=== PATIENT | female | born 1995 | race Caucasian/White ===

== ENCOUNTER 2023-04-27 00:53 | Day surgery (SDC) | payer OTHER, SELFPAY ==
[2023-04-21 11:08] VITALS: BMI 22.6
--- NOTE | 2023-04-21 11:11 | PC.NURSE ---
Report to the Outpatient Waiting Room, entrance under the green pavilion located off [facility], at time 1130 on date 04/27/23. Planned Procedure Time: 1330. Time changes happen often and if your time is changed the preop area will call you the afternoon before. - You and your visitor will be asked to self-screen and do not enter if you have any COVID symptoms. - A mask is optional within the hospital at this time. Patients may have clear liquids (water, carbonated beverages, clear teas, apple juice) until 3 hours prior to surgery with a maximum of 20 ounces. - No food from midnight until time of surgery Take the following medications with a SIP of water the morning of surgery: NONE DO NOT STOP ANY OF YOUR OTHER PRESCRIPTION MEDICATIONS PRIOR TO SURGERY ?EXCEPT THE FOLLOWING Medications to discontinue per physician: N/A Date to take last dose: N/A Please no make-up, nail armenian, hairspray, perfume, deodorant, or body powder the day of surgery. No jewelry (including any body piercings) or valuables the day of surgery, leave them at home. Please take a shower or bath the night before, or the morning of, surgery with an antibacterial soap. Wear comfortable, loose fitting clothing. - Jewelry must be removed prior to entering the operating room. Rings and piercings that are not removed may be cut off. - The hospital will not accept responsibility for valuables. - Please leave all valuables, including medications, at home the day of surgery. If you are going home after surgery, a licensed pick up and delivery driver must drive you home. - NO public transportation without another adult if you receive anesthesia. - We recommend that an adult stay with you for 24 hours following discharge. - We also recommend that you do not drive, make important decision, drink alcoholic beverages, or take any drugs that were not prescribed by your health care provider for at least 24 hours after your discharge time. Follow any additional instructions given to you from your surgeon. If you or anyone in your household have experienced Covid symptoms in the past week, please notify your surgeon or the nurse liaison at the phone number below for possible testing. Telephone instructions given to PT - TUAN ROTHMAN and asked if any additional questions and then verbalized understanding. Patient advised to call surgeon office or pre surgery nurse liaison [phone] if any additional questions.
--- NOTE | 2023-04-27 08:25 | WPDANESEPPF ---
Anes - Initial Pre Proc Eval Procedure: Operation Date: 04/27/23 15:00 Proposed Procedures p Rectal Exam Under Anesthesia, Possible Anal Fistulotomy - Norris Wong DO Date/Time: 04/27/23 08:25 Surgeon: Norris Wong DO Pre Op Diagnosis: Anal Fistula ,Tobacco Use Patient Data Age: 28 Gender: F Height: 1.6 m Weight: 58.1 kg Allergies Allergy/AdvReac Type Severity Reaction Status Date / Time No Known Allergies Allergy Verified 04/27/23 13:28 Home Medications Medication Instructions Recorded Confirmed Type diphenhydramine HCl 25 mg capsule 25 mg PO HS PRN Sleep 04/21/23 04/27/23 History (Benadryl) oxycodone-acetaminophen 5 mg-325 0.5 - 1 tablet PO Q4H PRN pain #10 04/27/23 Rx mg tablet (Endocet) tabs Patient hx anesthesia problems: none Family hx anesthesia problems: none Results Review: All pre-operative results and documents have been reviewed as part of the pre-operative evaluation. [facility] Past Medical History Medical History (Updated 04/16/23 @ 11:10 by Sue Fuentes CMA) Anxiety Depression Surgical History Surgical History (Updated 04/16/23 @ 10:49 by Sue Fuentes CMA) History of appendectomy 2000 [facility]. 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 Informed Consent: The patient's anesthetic plan and its attendant risks and benefits were discussed with the patient/family/POA. Questions were solicited and answers provided to the satisfaction of the patient/family/POA.
[2023-04-27 13:10] VITALS: BP 112/60; PULSE 88; RESP 16; TEMP 36.4; O2SAT 100
[2023-04-27] MEDS: ACETAMINOPHEN 500 MG TABLET 1000 MG PO (13:29)
[2023-04-27] MEDS: LACTATED RINGERS 1,000 ML 30 ML IV CONT (13:35)
[2023-04-27] MEDS: KETOROLAC 15 MG/ML VIAL (*BKC) IV PUSH (13:38)
--- NOTE | 2023-04-27 14:12 | P.PNAN_ITS ---
Anes - Initial Pre Proc Eval Procedure: Operation Date: 04/27/23 15:00 Proposed Procedures p Rectal Exam Under Anesthesia, Possible Anal Fistulotomy - Norris Wong DO Date/Time: 04/27/23 14:12 Surgeon: Norris Wong DO Pre Op Diagnosis: Anal Fistula ,Tobacco Use Patient Data Age: 28 Gender: F Height: 1.6 m Weight: 59.3 kg Last Vital Signs Temp 97.6 F 04/27/23 13:10 Pulse 88 04/27/23 13:10 Resp 16 04/27/23 13:10 BP 112/60 04/27/23 13:10 Pulse Ox 100 04/27/23 13:10 O2 Del Method Room Air 04/27/23 13:10 Allergies Allergy/AdvReac Type Severity Reaction Status Date / Time No Known Allergies Allergy Verified 04/27/23 13:28 Home Medications Medication Instructions Recorded Confirmed Type diphenhydramine HCl 25 mg capsule 25 mg PO HS PRN Sleep 04/21/23 04/27/23 History (Benadryl) Patient hx anesthesia problems: none Family hx anesthesia problems: none Results Review: All pre-operative results and documents have been reviewed as part of the pre- operative evaluation. [facility] Past Medical History Medical History (Updated 04/16/23 @ 11:10 by Sue Fuentes CMA) Anxiety Depression Surgical History Surgical History (Updated 04/16/23 @ 10:49 by Sue Fuentes CMA) History of appendectomy 2000 [facility] [place]. 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 Informed Consent: The patient's anesthetic plan and its attendant risks and benefits were discussed with the patient/family/POA. Questions were solicited and answers provided to the satisfaction of the patient/family/POA.
--- NOTE | 2023-04-27 14:24 | WPDHPUPDATE1 ---
History and Physical Update Update Date/Time: 04/27/23 14:24 History and Physical has been reviewed, including an updated exam of the patient. There are NO changes in the patient's condition. Risks, benefits, and alternatives have been discussed and questions answered. Patient agrees to proceed with procedure.
[2023-04-27] MEDS: ceFAZolin 2 GM/D5W 50 ML 2 GM/50 ML BAG IVPB (14:34)
[2023-04-27] MEDS: BUPivacaine HCL 0.5% PF 30 ML VIAL INFILTRATE (14:58)
--- NOTE | 2023-04-27 15:13 | W.PM.PROC2 ---
Procedure Note - Detailed Date of Procedure 04/27/23 Pre-op Diagnosis Anal Fistula ,Tobacco Use Post-op Diagnosis Same (Right anterior intersphincteric anal fistula) Procedure Performed Rectal exam under anesthesia with intersphincteric anal fistulotomy Surgeon Norris Wong, DO Anesthesia General and Local (0.5% bupivacaine with epinephrine) Indications This is a 28-year-old woman who presented with recurrent swelling and drainage in the perirectal area. She which only had a perirectal abscess that was drained in August of 2022. She then recovered from this but had another recurrent episode in the same region. She continues to have intermittent drainage from this area and pain when there is increased swelling and drainage. She was found to have a small sinus tract the perianal skin in the right anterior location. This appeared to likely be a fistula communicating to the anal canal. Discussions were made with the patient about treatment options and decision was made to proceed with rectal exam under anesthesia with possible anal fistulotomy. Findings Rectal exam under anesthesia was performed. The patient was found to have an anal fistula in the right anterior location about 4 cm from the anal verge. The fistula tract was carefully probed and the internal opening was identified near the anterior midline region. This appeared to be a relatively shallow intersphincteric fistula and appeared to go through only a few sphincter muscle fibers. The remainder of the internal and external sphincter muscles appeared intact. A fistulotomy was performed directly over the tract. The granulation tissue was cleaned up using electrocautery. No other deep abnormalities were noted. No specimens were obtained for pathology. Description of Procedure Procedure as well as risks, benefits, and alternatives were discussed with the patient. Written consent was obtained and placed in chart prior to procedure. Patient was brought back to surgical suite. She was placed supine on her hospital stretcher. Time-out was done to confirm patient and procedure. She was intubated by Anesthesia Department. She was then repositioned into prone dewayne-knife position on the operating table. Her perirectal region was prepped and draped in sterile fashion using Betadine prep. Digital rectal exam was initially performed. A Hill-Van anoscope was then inserted and the anal rectal canal was carefully inspected. I then identified the fistula tract on the perianal skin about 4 cm from the anal verge. This was probed using a small lacrimal probe and the tract was identified advancing towards the anterior midline. The probe was carefully gently advanced throughout the length of the tract until it was visualized at the anal canal. The internal opening was identified in the anterior midline of the anal canal and the probe was advanced all the way through this opening. 0.5% bupivacaine with epinephrine was then infiltrated locally over the tract. A 15 blade scalpel was then used to make an incision directly over the fistula tract from the internal opening to the external opening. Electrocautery was then used for hemostasis and for dissection through the subcutaneous tissue until the fistula tract was completely opened and the fistulotomy was performed. There was some chronic granulation tissue along the fistula tract. This was cauterized to knitter helper with healing. Hemostasis was then achieved with electrocautery as well. The wound was then inspected and no other abnormalities were noted. The area was irrigated with sterile saline. One final inspection was made around the anorectal canal and no other abnormalities were noted. Xeroform gauze was applied over the fistulotomy wound followed by 4 x 4 gauze, ABD pads, and mesh underwear. The patient was then awakened from anesthesia, extubated, and transferred to recovery. Estimated Blood Loss 5 Complications No immediate complications Condi
[2023-04-27 15:30] VITALS: BP 129/84; PULSE 81; RESP 12; TEMP 36.3; O2SAT 100
[2023-04-27 15:45] VITALS: BP 116/71; PULSE 76; RESP 15; O2SAT 100
[2023-04-27 16:00] VITALS: BP 105/79; PULSE 70; RESP 10; O2SAT 100
[2023-04-27 16:20] VITALS: BP 107/60; PULSE 95; RESP 18; O2SAT 100
[2023-04-27] MEDS: oxyCODONE HCL (*CRX) 5 MG TAB IR PO (16:24)
[2023-04-27 16:50] VITALS: BP 93/58; PULSE 63; RESP 18
== END 2023-04-27 16:57 | disposition home or self-care (01) ==
PROVIDERS: PCP Internal Medicine; Visit Provider Surgery
PROC: (CPT 46275; principal; 2023-04-27 15:00)
DX: K60.3 Anal fistula (principal); F41.9 Anxiety disorder, unspecified; F32.A Depression, unspecified; F17.290 Nicotine dependence, other tobacco product, uncomplicated; Z79.891 Long term (current) use of opiate analgesic; Z80.9 Family history of malignant neoplasm, unspecified
CPT/HCPCS: 46275; A9270; J0690; J1100; J1170; J1200; J1885; J2250; J2405; J2704; J3010; J7120